=== PATIENT | female | born 1980 | race Asian ===

== ENCOUNTER 2016-09-06 07:50 | Emergency (ER) | payer OTHER ==
[~2016-09-06] VITALS: Ht 165.1 cm; Wt 55.9 kg
[2016-09-06] MEDS ORDERED: CLAR10CA3 PO (08:11)
[2016-09-06] MEDS ORDERED: GABA-283 PO (08:11)
[2016-09-06] MEDS ORDERED: PROZ20CA11 PO (08:11)
[2016-09-06 08:12] VITALS: BP 117/78
[2016-09-06] MEDS ORDERED: NAPR500T PO (08:57)
--- NOTE | 2016-09-06 09:22 | REP ---
RIGHT SHOULDER, THREE VIEWS: HISTORY: Trauma. There is no acute fracture or dislocation. The joint spaces are normal in appearance. IMPRESSION: There is no acute fracture or dislocation. Signed by Alvin Collier MD 09/06/2016 09:25 A
--- NOTE | 2016-09-06 09:32 | REP ---
RIGHT ELBOW SERIES COMPLETE: 09/06/2016 CLINICAL HISTORY: Trauma. No prior studies FINDINGS: Four views are provided. Radial head and capitellum align normally. Olecranon and distal humerus also without fracture or focal lesion. There is no joint effusion, avulsion of the triceps insertion or olecranon soft tissue swelling. IMPRESSION: Negative right elbow series for fracture or other acute finding. Signed by Reilly Meza MD 09/06/2016 07:00 P
== END 2016-09-06 09:10 | disposition home or self-care (01) ==
LOC: M ED 07:50
DX: S43.401A Unspecified sprain of right shoulder joint, initial encounter (principal); S40.011A Contusion of right shoulder, initial encounter; W01.198A Fall on same level from slipping, tripping and stumbling with subsequent striking against other object, initial encounter; Y92.099 Unspecified place in other non-institutional residence as the place of occurrence of the external cause; Y93.01 Activity, walking, marching and hiking; Y99.9 Unspecified external cause status